=== PATIENT | female | born 1960 | race Caucasian/White ===

== ENCOUNTER 2017-01-19 21:55 | Emergency (ER) | payer MEDICAID | END 2017-01-19 23:05 | disposition home or self-care (01) | LOC: D.ER 21:55 | DX: S52.502A Unspecified fracture of the lower end of left radius, initial encounter for closed fracture (principal); W19.XXXA Unspecified fall, initial encounter; Y93.89 Activity, other specified; Y92.019 Unspecified place in single-family (private) house as the place of occurrence of the external cause; F17.200 Nicotine dependence, unspecified, uncomplicated; I10 Essential (primary) hypertension ==

== ENCOUNTER 2017-01-24 05:24 | Day surgery (SDC) | payer MEDICAID ==
[2017-01-23 11:46] LABS: HEMATOCRIT 41.3 % (36.0-48.0); HEMOGLOBIN 13.3 g/dL (12-16); MCHC 32.2 g/dL (31.0-37.0); MCV 86.9 fL (80.0-100.0); MEAN PLATELET VOLUME 10.5 fL (7.4-10.4); RBC 4.75 10x6/uL (4.00-5.40); RDW 13.9 % (11.5-14.5); WBC 6.8 10x3/uL (4.8-10.8)
[~2017-01-24] VITALS: Ht 157.5 cm; Wt 93.0 kg
--- NOTE | ~2017-01-24 | OP ---
PATIENT NAME: JAY VARGAS MEDICAL RECORD: [id number] :64 LOCATION:[facility] ADMISSION DATE: SURGEON: RISHI NG DO DATE OF OPERATION: 01/24/2017 PROCEDURE PERFORMED: Left distal radius open reduction internal fixation. PREOPERATIVE DIAGNOSIS: Left distal radius intraarticular fracture that was closed. POSTOPERATIVE DIAGNOSIS: Left distal radius intraarticular fracture that was closed. INDICATIONS: Ms. Vargas is a right hand dominant 56-year-old female, who fell about 5 or 6 days ago and sustained a distal radius fracture. She was seen in the office 2 days ago. New x-rays were taken and she was seen to have a radial styloid intra-articular fracture as well as a distal radius fracture. Preoperatively, it was discussed with her, we could try to treat her nonop but I was afraid of more collapse and continued wrist pain, she decided to undergo the procedure of open reduction internal fixation. She was warned of the risks and benefits of the procedure at that time. SURGEON: Rishi Ng DO. DESCRIPTION OF PROCEDURE: The patient was given a block in the preoperative area and taken to the operative suite, placed in supine position, given general anesthetic and given antibiotics preoperatively and she was given Ancef preoperatively. The left arm was prepped and draped in sterile fashion. A timeout was then performed. Everyone was in agreement with the correct side, site and surgery. Incision was marked out over the flexor carpi radialis tendon. Then, an Esmarch was used to exsanguinate the left upper extremity and tourniquet was inflated at 250 mmHg. The Esmarch was then taken off and the procedure began with skin incision down to the flexor carpi radialis tendon. The tendon sheath was entered. The tendon was taken ulnarly and then the dorsal part of the tendon sheath was incised as well. Blunt dissection was then made down to the flexor pollicis longus and that was also taken ulnarly. The pronator quadratus was then identified and the radial fibers of that were taken off the distal radius. Once this was done, the fracture was exposed. A K wire was used to reduce the fracture. A plate was then placed on the distal radius and pinned in to place with K wires. This is all done under fluoro and then the shaft screw was placed in the sliding hole of the distal radius plate and we proceeded to put locking screws in distally, ulnarly first, then radially. The radial styloid screw was then placed. Following those, the remaining 2 shaft screws were then placed. This is a skeletal [employer] plate and x-rays were taken and the screws are seen to be in good position and not in the joint. This was confirmed on AP and lateral. Once this was done, the pronator quadratus was attempted to be repaired with 0 Vicryl and we got 1 stitch in it and then it tore out, the tissue did not handle repair. We then irrigated really well with normal saline with Ancef in it and pressure was held. The tourniquet was let down at 54 minutes. Once adequate coagulation was performed, the skin was closed with 2-0 Vicryl in an inverted interrupted fashion and then Prineo Dermabond closure was done on the skin. Once this was done and dried, Adaptic, 4 x 4 was placed over the incision and patient was wrapped with a Kerlix and Webril and a volar splint was placed on the wrist overwrapped with Jarad wraps. The patient was awakened and taken to recovery in stable condition. OPERATIVE REPORT [id number] JAY VARGAS TRANSINT:[id number] Voice Confirmation ID: [id number] DOCUMENT ID: [id number] RISHI NG DO CC: [id number] DICTATION DATE: 01/24/17937 [employer]: 01/24/17 1032 [facility] [address] [place] [address]
[~2017-01-24 05:24] MED LIST: HYDROCODONE-APA1 TAB PO; VALIUM5 MG PO
[2017-01-24] MEDS ORDERED: MOBIC7.5 MG PO (06:24)
[2017-01-24 06:27] VITALS: BP 180/90; Ht 157.5 cm; Wt 93.0 kg
[2017-01-24] MEDS ORDERED: DURICEF500 MG PO (09:30)
[2017-01-24] MEDS ORDERED: PERCOCET 5-3251 TAB PO (09:30)
--- NOTE | 2017-01-24 12:02 | NUR ---
1108--PT COMPLAINS OF PAIN, RATES PAIN 4-5/10. PERCOCET 5/325MG GIVEN PO FOR PAIN, WILL CONTINUE TO MONITOR. KENY PATTEN
--- NOTE | 2017-01-24 12:30 | NUR ---
1200--PT REPORTS PAIN IS BETTER, RATES PAIN 2-3/10. FULL LIQUID TRAY GIVEN. KENY PATTEN 1230--IV DC'D, PT UP TO DRESS. KENY PATTEN
--- NOTE | 2017-01-24 16:02 | NUR ---
1255--DISCHARGE INSTRUCTIONS GIVEN, PT VERBALIZES UNDERSTANDING. PT OFF UNIT VIA [facility]. KENY PATTEN
== END 2017-01-24 12:55 | disposition home or self-care (01) ==
LOC: D.OPS 05:24 → D.PAN 07:30 → D.OPS 12:55
PROVIDERS: Anesthesiology
DX: S52.532A Colles' fracture of left radius, initial encounter for closed fracture (principal); F17.200 Nicotine dependence, unspecified, uncomplicated; I10 Essential (primary) hypertension; E66.9 Obesity, unspecified; Z68.37 Body mass index [BMI] 37.0-37.9, adult; Z01.812 Encounter for preprocedural laboratory examination

== ENCOUNTER 2018-12-03 02:29 | Emergency (ER) | payer MEDICAID ==
[~2018-12-03] VITALS: Ht 157.5 cm; Wt 118.2 kg
[~2018-12-03 02:29] MED LIST changes: +DURICEF500 MG PO; +MOBIC7.5 MG PO; +PERCOCET 5-3251 TAB PO
[2018-12-03 02:35] VITALS: Ht 157.5 cm; Wt 118.2 kg
[2018-12-03] MEDS ORDERED: OXYBUTYNIN CHLOR5 M1 PO (02:37)
[2018-12-03] MEDS ORDERED: OXYCONTIN10 MG PO (02:37)
[2018-12-03] MEDS ORDERED: TOPROL XL100 MG PO (02:37)
[2018-12-03] MEDS ORDERED: NORVASC10 MG PO (02:37)
[2018-12-03] MEDS ORDERED: NEURONTIN 300300 MG PO (02:38)
[2018-12-03] MEDS ORDERED: PROZAC20 MG PO (02:38)
[2018-12-03] MEDS ORDERED: ALBUTEROL SULF8.5 GM INH (02:38)
[2018-12-03] MEDS ORDERED: HYDROCODON-ACE1 EA10 PO (05:09)
[2018-12-03 05:16] VITALS: BP 189/98
== END 2018-12-03 05:16 | disposition home or self-care (01) ==
LOC: D.ER 02:29
DX: S52.132A Displaced fracture of neck of left radius, initial encounter for closed fracture (principal); X58.XXXA Exposure to other specified factors, initial encounter; Y93.89 Activity, other specified; Y92.89 Other specified places as the place of occurrence of the external cause

== ENCOUNTER → 2018-12-17 13:21 | Outpatient (CLI) | payer MEDICAID ==
[2018-12-03 02:35] VITALS: BMI 47.7
[~2018-12-17 13:21] MED LIST changes: +ALBUTEROL SULF8.5 GM INH; +HYDROCODON-ACE1 EA10 PO; +NEURONTIN 300300 MG PO; +NORVASC10 MG PO; +OXYBUTYNIN CHLOR5 M1 PO; +OXYCONTIN10 MG PO; +PROZAC20 MG PO; +TOPROL XL100 MG PO
== END | disposition home or self-care (01) ==
LOC: D.MRI 13:21
PROVIDERS: ATTEND Orthopaedic Surgery
DX: M25.561 Pain in right knee (principal)